=== PATIENT | female | born 1955 | race Caucasian/White ===

== ENCOUNTER 2022-03-21 13:42 | Emergency (ER) | payer OTHER ==
--- NOTE | 2022-03-21 14:25 | XRAY Report ---
PROCEDURE: Finger(s) RT INDICATIONS: Trauma TECHNIQUE: PA hand, 2 views of the thumb acquired. COMPARISON: None. FINDINGS: Bones: Small calcification is seen at the volar aspect of the fifth distal phalanx that may be a smal l fracture fragment versus a sesamoid. No suspicious bony lesions. Mild to moderate degenerative zuleika nges at the first carpometacarpal joint and triscaphe joint. 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 Soft tissues: Mild soft tissue edema is seen in the thumb. IMPRESSION: 1.Small calcification at the volar aspect of the first distal phalangeal base may represent a small f racture fragment versus a normal sesamoid. Recommend correlation for point tenderness. 2.Mild to moderate degenerative changes at the first carpometacarpal and triscaphe joints. 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 Reviewed by: Noah Mcnally MD on 03/21/2022 2:24 PM PDT Approved by: Noah Mcnally MD on 03/21/2022 2:24 PM PDT Station ID: [id number]
--- NOTE | 2022-03-21 15:24 | ED Physician Documentation ---
PD HPI UPPER EXT INJURY - Stated complaint Stated Complaint: RT THUMB INJ - Chief complaint Chief Complaint: Trauma Ext - History obtained from History obtained from: Patient - History of Present Illness Location: Right, Finger (thumb) Type of injury: Blunt / blow (she states struck on thumb as she was reaching/holding something, so direct impact at thumb and some hyperextension.) Where injury occurred: Work Timing - onset: How many weeks ago (2) Timing - duration: Weeks (2) Timing - details: Abrupt onset, Still present (continues to hurt with movement and persistent swelling.) Improved by: Rest Worsened by: Moving, Palpating Associated symptoms: Swelling. No: Weakness, Numbness Similar symptoms before: Has not had sx before Recently seen: Not recently seen Review of Systems Skin: denies: Abrasion (s), Laceration (s) Musculoskeletal: reports: Joint pain (thumg at MCP and IP.) Neurologic: denies: Focal weakness, Numbness PD PAST MEDICAL HISTORY - Past Medical History Musculoskeletal: None - Present Medications Home Medications: Ambulatory Orders Medication Instructions Recorded Confirmed HYDROcod/ACETAM 5/325 [[place] 5/325] 1 ea PO Q6H PRN #10 tablet 03/21/22 Meloxicam [Mobic] 7.5 mg PO BID 10 Days #20 tablet 03/21/22 - Allergies Allergies/Adverse Reactions: Allergies Allergy/AdvReac Type Severity Reaction Status Date / Time No Known Drug Allergies Allergy Verified 03/21/22 13:50 PD ED PE NORMAL - Vitals Vital signs reviewed: Yes - General General: Alert and oriented X 3, No acute distress, Well developed/nourished - Derm Derm: Normal color, Warm and dry - Extremities Extremities: Other (righ thumb with swelling and tender at MCP dorsal and IP volar areas. Able to flex and extend reluctantly but hurts and swelling. ) - Neuro Neuro: No motor deficit, No sensory deficit Results - Vitals Vitals: Vital Signs - 24 hr 03/21/22 03/21/22 13:47 16:36 Temperature 36.2 C L Heart Rate 74 59 L Respiratory 16 14 Rate Blood Pressure 156/58 H 149/70 H O2 Saturation 97 97 Oxygen O2 Source Room air - Rads (name of study) hand Radiology: Prelim report reviewed (small calcificiation volar IP joint, consider avulsion. ), See rad report PD MEDICAL DECISION MAKING - ED course Complexity details: reviewed results (consider small avulsion volar IP joint. ), considered differential (patient tender at MCP and at IP. ), d/w patient Departure - Departure Disposition: 01 Home, Self Care Clinical Impression: Sprain of right thumb Qualifiers: Encounter type: initial encounter Sprain of finger site: unspecified site Qualified Code(s): S63.601A - Unspecified sprain of right thumb, initial encounter Condition: Stable Record reviewed to determine appropriate education?: Yes Instructions: ED Sprain Finger Follow-Up: Orthopedic Care [Provider Group] Prescriptions: Meloxicam [Mobic] 7.5 mg PO BID 10 Days #20 tablet HYDROcod/ACETAM 5/325 [[place] 5/325] 1 ea PO Q6H PRN #10 tablet PRN Reason: Pain Comments: It seems likely to be some bruising and sprain of the thumb. However x-ray shows an area of a possible small avulsion/chip fracture at the joint. As far as the bone goes, is not really a large issue regarding fracture but more vendor representatives of the attachment point for some ligaments. We want to protect range of motion of the thumb and lessen it to allow better healing. Use the Velcro thumb splint much of the time at home and most of the time with working or activity over the next couple of weeks. Meloxicam anti-inflammatory twice daily with food. To that add Tylenol or hydrocodone if needed for pain. I sent your prescriptions to [facility] in [place]. I am prescribing a short course of narcotic pain medication for you. These are potentially dangerous and addictive medications that should be used carefully. These medications may constipate you. Take an xgje-tqw-axfoygv stool softener such as docusate twice daily with plenty of water while taking these medications. If you go 24 hours without a bowel movement, take hcbn-yca-vywzygr MiraLAX, per package instructions. Do not drink or drive while taking these medications. If you received narcotic or sedating medications while in the emergency department do not drive for 24 hours. Store this medication in a safe, secure place and out of reach of children. It is a violation of federal law to give or sell this medication to another person or to use in a manner other than prescribed. The ED will not refill narcotic prescriptions, including prescriptions lost or stolen. You can dispose of unwanted medications at the [facility]'s office or at several pharmacies such as [facility]. Follow-up with the orthopedic office to ensure this is healing well. Call for an appointment for about 1-1 1/2 weeks from now. Discharge Date/Time: 03/21/22 16:38
[2022-03-21] MEDS ORDERED: HYDROcod/ACETAM 5/325 MG TABLET PO STA (16:20)
[2022-03-21 16:37] VITALS: BP 149/70
== END 2022-03-21 16:38 | disposition home or self-care (01) ==
LOC: ED 13:42
DX: S63.601A Unspecified sprain of right thumb, initial encounter (principal); W22.8XXA Striking against or struck by other objects, initial encounter; Y99.0 Civilian activity done for income or pay
CPT/HCPCS: 73140; 99283; A9270

== ENCOUNTER 2022-04-21 14:36 | Outpatient (CLI) | payer OTHER ==
[2022-04-21] MEDS ORDERED: GADOBUTROL 7.5 MMOL/7.5 ML VIAL ONE (15:19)
[2022-04-21] MEDS ORDERED: GADOBUTROL 7.5 MMOL/7.5 ML VIAL IVP ONE (15:55)
--- NOTE | 2022-04-21 16:55 | MRI Report ---
PROCEDURE: Brain W/WO INDICATIONS: HEMIPLEGIA CONTRAST: IV CONTRAST: Gadavist ml: 5.1 TECHNIQUE: Noncontrast axial T1 spin echo, axial T2 fast spin echo, sagittal and axial FLAIR, coronal T2 fast sp in echo, axial gradient echo, axial diffusion and ADC through the brain. After the administration of contrast, axial and coronal T1 spin echo with fat saturation through the brain. COMPARISON: Correlation is made with prior head CT angiogram, 04/01/2022. FINDINGS: Image quality: Excellent. CSF spaces: Basal cisterns are patent. No extra-axial fluid collections. Ventricles are normal in size and shape. Brain: No midline shift. No intracranial bleeds or masses. No abnormal intracranial enhancement. There is cerebral volume loss for age. There is periventricular white matter chronic small vessel is chemic change. The brainstem appears normal. Diffusion-weighted images demonstrate no acute ischemi c insults. No chronic ischemic insults. Normal intravascular flow voids are present. Skull and face: Calvarial marrow is normal in signal. Orbits appear normal. Incidental note is ma de of bilateral lens replacements. Sinuses: Sinuses and mastoids appear clear. IMPRESSION: No findings of acute or subacute infarction are seen. No prior significant infarction can be seen. No masses or abnormal enhancement can be seen. Reviewed by: Salvatore Giles MD on 04/21/2022 3:54 PM [facility] Approved by: Salvatore Giles MD on 04/21/2022 3:54 PM [facility] Station ID: [id number]
== END 2022-04-21 14:37 | disposition home or self-care (01) ==
LOC: DI 14:36
PROVIDERS: ATTEND Physician Assistant
DX: I69.354 Hemiplegia and hemiparesis following cerebral infarction affecting left non-dominant side (principal)
CPT/HCPCS: 70553; A9585

== ENCOUNTER 2022-04-29 00:04 | Emergency (ER) | payer OTHER ==
[2022-04-29] MEDS ORDERED: KETOROLAC 30 MG/ML VIAL IM STA (00:41)
[2022-04-29] MEDS ORDERED: HYDROcod/ACETAM 5/325 MG TABLET PO STA (00:41)
[2022-04-29] MEDS ORDERED: predniSONE 20 MG TABLET PO STA (00:41)
--- NOTE | 2022-04-29 01:29 | ED Physician Documentation ---
History of Present Illness - Stated complaint Stated Complaint: R HIP/LEG PAIN - Chief complaint Chief Complaint: Ext Problem - History obtained from History obtained from: Patient - Additonal information Additional information: The patient comes to the emergency department with chief complaint of right buttock pain that goes all the way down her leg into her calf. She states that she has had this occasionally but that its been really bad over the last few days. The patient states that she does some standing at work but mostly sits. She has not had any injury recently. No back pain. The pain starts at the top of her buttock and goes down through the mid buttock into her leg. No numbness or tingling. No loss of bowel or bladder control. No difficulty with gait. No other complaints at this time. Review of Systems Ten Systems: 10 systems reviewed and negative Constitutional: reports: Reviewed and negative Eyes: reports: Reviewed and negative Ears: reports: Reviewed and negative Nose: reports: Reviewed and negative Throat: reports: Reviewed and negative Cardiac: reports: Reviewed and negative Respiratory: reports: Reviewed and negative GI: reports: Reviewed and negative : reports: Reviewed and negative Skin: reports: Reviewed and negative Musculoskeletal: reports: Extremity pain Neurologic: reports: Reviewed and negative Psychiatric: reports: Reviewed and negative Endocrine: reports: Reviewed and negative Immunocompromised: reports: Reviewed and negative PD PAST MEDICAL HISTORY - Past Medical History Cardiovascular: None Neuro: None Endocrine/Autoimmune: Type 2 diabetes Musculoskeletal: None - Past Surgical History Past Surgical History: No Ortho: Spine surgery - Present Medications Home Medications: Ambulatory Orders Medication Instructions Recorded Confirmed Insulin Glargine [Lantus Solostar] 10 units SQ HS 04/01/22 04/01/22 Atorvastatin [Lipitor] 40 mg PO QPM #30 tablet 04/02/22 Clopidogrel [Plavix] 75 mg PO DAILY #30 tablet 04/02/22 Cyclobenzaprine [Flexeril] 5 mg PO TID PRN #20 tablet 04/02/22 Insulin Lispro [Humalog Kwikpen 3 unit SUBQ TIDWM #3 each 04/02/22 U-100] Magnesium Oxide [Mag Ox] 400 mg PO DAILYWM #30 tablet 04/02/22 HYDROcod/ACETAM 5/325 [[place] 5/325] 1 - 2 tablet PO Q6H PRN #14 tablet 04/29/22 predniSONE [Deltasone] 60 mg PO DAILY 5 Days #15 tablet 04/29/22 - Allergies Allergies/Adverse Reactions: Allergies Allergy/AdvReac Type Severity Reaction Status Date / Time No Known Drug Allergies Allergy Verified 04/29/22 00:07 - Social History Does the pt smoke?: No Smoking Status: Never smoker PD ED PE NORMAL - Vitals Vital signs reviewed: Yes - General General: No acute distress, Well developed/nourished, Other (Alert, grossly oriented. 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, Normal 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 - Psych Psych: Normal mood, Normal affect Results - Vitals Vitals: Vital Signs - 24 hr 04/29/22 04/29/22 00:07 01:45 Temperature 36.5 C Heart Rate 87 67 Respiratory 16 18 Rate Blood Pressure 150/60 H 143/62 H O2 Saturation 99 100 Oxygen O2 Source Room air - Rads (name of study) Right hip pelvis X-ray Radiology: Final report received, EMP read indepedently, See rad report (No acute findings) PD MEDICAL DECISION MAKING - ED course Complexity details: reviewed results, re-evaluated patient, considered differential, d/w patient ED course: The patient was treated symptomatically in the emergency department. Her x-rays were unremarkable. I discussed home management of her symptoms with her, as well as the usual indications for return. Departure - Departure Disposition: 01 Home, Self Care Clinical Impression: Sciatica Qualifiers: Laterality: right Qualified Code(s): M54.31 - Sciatica, right side Condition: Stable Instructions: ED Sciatica Prescriptions: predniSONE [Deltasone] 60 mg PO DAILY 5 Days #15 tablet HYDROcod/ACETAM 5/325 [[place] 5/325] 1 - 2 tablet PO Q6H PRN #14 tablet PRN Reason: Pain Comments: Your hip and pelvis x-ray actually look quite good. You do not have any arthritis to speak of and most likely, the pain that you are having is caused by compression of your sciatic nerve bundle as it passes through your pelvis. This can account for the pain that goes down through your buttock and anterior leg. There are number of helpful stretches that you can google to help decompress the nerve. You may also use ibuprofen and Tylenol if needed. Prescriptions for stronger medications have been electronically transmitted to the [email or web address] pharmacy in [place], which is your pharmacy of choice on record. Please follow-up with your primary doctor to discuss further options for treatment if your symptoms are not better in the next 1 to 2 weeks.
[2022-04-29 01:46] VITALS: BP 143/62
--- NOTE | 2022-04-29 01:54 | XRAY Report ---
PROCEDURE: Hip w/Pelvis 1V RT INDICATIONS: pain TECHNIQUE: AP view of the pelvis acquired. COMPARISON: None. FINDINGS: Bones: No displaced fractures or dislocations. Pelvic ring appears intact. No suspicious bony lesi ons. Soft tissues: The visualized bowel gas pattern is normal. IMPRESSION: 1. No displaced fracture or dislocation. Reviewed by: Bunny Gomez MD on 04/29/2022 1:52 AM PDT Approved by: Bunny Gomez MD on 04/29/2022 1:52 AM PDT Station ID: [id number]
--- OUTSIDE RECORDS SUMMARY | 2022-04-29 05:45 | EXTERNAL MEDICAL SUMMARY RPT | Continuity of Care Document ---
:1955 Author Organization [facility] Address [address] [place] [address] Phone Allergies No information. Encounters No information. Functional Status No information. Immunizations No information. Medications date description facility +0000 insulin glargine All [id number]+0000 hydrocodone-acetaminophen All [id number]+0000 insulin glargine All [id number]+0000 meloxicam All [id number]+0000 meloxicam All [id number]+0000 hydrocodone-acetaminophen All Problems No information. Procedures date description facility [id number] Visit Code Hold All Results/Labs No information. Social History No information. Vital Signs date measurement value units [id number]+0000 BP_diastolic BP_diastolic 81 mm[H g] [id number]+0000 BP_systolic BP_systolic 121 mm[Hg] 87555014764316+0000 heart_rate heart_rate 91 /min [id number]+0000 respiration_rate respiration_rate 18 /min 69820060146486+0000 temperature_metric temperature_metric 36.78 C [id number]+0000 temperature_standard temperature_standard 9 8.2 F [id number]+0000 weight_metric weight_metric 44 kg [id number]+0000 weight_standard weight_standard 97 lb
== END 2022-04-29 01:45 | disposition home or self-care (01) ==
LOC: ED 00:04
DX: M54.31 Sciatica, right side (principal); E11.9 Type 2 diabetes mellitus without complications; Z79.4 Long term (current) use of insulin
CPT/HCPCS: 73501; 96372; 99283; 99284; A9270; J7512

== ENCOUNTER 2022-07-05 12:55 | Outpatient (CLI) | payer OTHER ==
[2022-07-05 18:31] LABS: BASOPHILS # (AUTO) 0.1 10^3/uL (0.0-0.1); BASOPHILS % (AUTO) 1.4 %; EOSINOPHILS # (AUTO) 0.5 10^3/uL (0.0-0.7); EOSINOPHILS % (AUTO) 6.6 %; HCT - HEMATOCRIT 37.3 % (37.0-47.0); LYMPHOCYTES # (AUTO) 2.7 10^3/uL (1.5-3.5); LYMPHOCYTES % (AUTO) 37.8 %; MEAN CORPUSCULAR HGB CONC 32.2 g/dL (32.0-36.0); MEAN CORPUSCULAR VOLUME 93.3 fL (81.0-99.0); MEAN PLATELET VOLUME 10.9 fL (7.9-10.8); MONOCYTES # (AUTO) 0.6 10^3/uL (0.0-1.0); NEUTROPHILS # (AUTO) 3.2 10^3/uL (1.5-6.6); NEUTROPHILS % (AUTO) 44.9 %; PLT - PLATELET COUNT 365 10^3/uL (130-450); WHITE BLOOD COUNT 7.1 x10^3/uL (4.8-10.8)
[2022-07-05 18:48] LABS: CREATININE,URINE 57.7 mg/dL; MICROALBUM/CREATININE RATIO,UR 466.2 ug/mg (<30.0); MICROALBUMIN,URINE 26.9 mg/dL (0-300.0)
[2022-07-05 18:59] LABS: THYROID STIMULATING HORMONE 2.07 uIU/mL (0.34-5.60)
[2022-07-05 19:03] LABS: ALBUMIN/GLOBULIN RATIO 1.1 (1.0-2.2); ALKALINE PHOSPHATASE 630 IU/L (42-121); ALT ALANINE AMINOTRANSFERASE 430 IU/L (10-60); AST ASPARTATE AMINOTRANSFERASE 283 IU/L (10-42); BILIRUBIN,TOTAL 0.6 mg/dL (0.2-1.0); BUN - BLOOD UREA NITROGEN 21 mg/dL (6-20); CALCIUM 9.9 mg/dL (8.5-10.3); CARBON DIOXIDE - CO2 27 mmol/L (21-32); CHLORIDE 106 mmol/L (101-111); CHOL/HDL RATIO 2.3 (<4.4); CHOLESTEROL 229 mg/dL; CREATININE 0.6 mg/dL (0.4-1.0); GFR - MDRD 100 (>89); GLUCOSE 156 mg/dL (70-100); HDL CHOLESTEROL 101 mg/dL; LDL CHOLESTEROL,CALCULATED 105 mg/dL; POTASSIUM 4.1 mmol/L (3.5-5.0); SODIUM 140 mmol/L (135-145); TOTAL PROTEIN 7.6 g/dL (6.7-8.2); TRIGLYCERIDES 116 mg/dL; VLDL CHOLESTEROL 23 mg/dL
[2022-07-05 20:09] LABS: ESTIMATED AVERAGE GLUCOSE 223 mg/dL (70-100); HEMOGLOBIN A1c% 9.4 % (4.27-6.07)
== END 2022-07-05 12:56 | disposition home or self-care (01) ==
LOC: LAB.N 12:55
PROVIDERS: ATTEND Family Medicine
DX: E78.00 Pure hypercholesterolemia, unspecified (principal); E10.9 Type 1 diabetes mellitus without complications; G45.9 Transient cerebral ischemic attack, unspecified; G81.94 Hemiplegia, unspecified affecting left nondominant side
CPT/HCPCS: 36415; 80053; 80061; 82043; 82570; 83036; 83721; 84443; 85025

== ENCOUNTER 2022-07-14 14:55 | Outpatient (CLI) | payer OTHER ==
[2022-07-14 15:11] LABS: BASOPHILS # (AUTO) 0.1 10^3/uL (0.0-0.1); BASOPHILS % (AUTO) 0.7 %; EOSINOPHILS # (AUTO) 0.3 10^3/uL (0.0-0.7); EOSINOPHILS % (AUTO) 2.8 %; HCT - HEMATOCRIT 36.1 % (37.0-47.0); HGB - HEMOGLOBIN 11.8 g/dL (12.0-16.0); LYMPHOCYTES # (AUTO) 2.9 10^3/uL (1.5-3.5); LYMPHOCYTES % (AUTO) 30.1 %; MEAN CORPUSCULAR HGB CONC 32.7 g/dL (32.0-36.0); MEAN CORPUSCULAR VOLUME 91.9 fL (81.0-99.0); MEAN PLATELET VOLUME 10.2 fL (7.9-10.8); MONOCYTES % (AUTO) 9.9 %; NEUTROPHILS # (AUTO) 5.4 10^3/uL (1.5-6.6); NEUTROPHILS % (AUTO) 56.2 %; PLT - PLATELET COUNT 326 10^3/uL (130-450); RED BLOOD COUNT 3.93 10^6/uL (4.20-5.40); RED CELL DISTRIBUTION WIDTH 12.5 % (12.0-15.0); WHITE BLOOD COUNT 9.6 x10^3/uL (4.8-10.8)
[2022-07-14 15:14] LABS: PT - PROTHROMBIN TIME 10.9 secs (9.9-12.6)
[2022-07-14 15:23] LABS: PARTIAL THROMBOPLASTIN TIME 27.9 secs (24.9-33.3)
[2022-07-14 15:30] LABS: % IRON SATURATION 13 % (20-50); ALBUMIN 4.1 g/dL (3.2-5.5); ALBUMIN/GLOBULIN RATIO 1.1 (1.0-2.2); ALKALINE PHOSPHATASE 571 IU/L (42-121); ALT ALANINE AMINOTRANSFERASE 190 IU/L (10-60); AST ASPARTATE AMINOTRANSFERASE 103 IU/L (10-42); BILIRUBIN,TOTAL 0.2 mg/dL (0.2-1.0); BUN - BLOOD UREA NITROGEN 28 mg/dL (6-20); CALCIUM 9.8 mg/dL (8.5-10.3); CARBON DIOXIDE - CO2 26 mmol/L (21-32); CHLORIDE 105 mmol/L (101-111); CHOL/HDL RATIO 2.8 (<4.4); CHOLESTEROL 205 mg/dL; CREATININE 0.6 mg/dL (0.4-1.0); GFR - MDRD 100 (>89); GLUCOSE 103 mg/dL (70-100); HDL CHOLESTEROL 72 mg/dL; IRON 52 ug/dL (28-170); LDL CHOLESTEROL,CALCULATED 112 mg/dL; LDL/HDL RATIO 1.6 (<4.4); POTASSIUM 3.9 mmol/L (3.5-5.0); SODIUM 141 mmol/L (135-145); TOTAL IRON BINDING CAPACITY 414 ug/dL (250-450); TOTAL PROTEIN 7.8 g/dL (6.7-8.2); TRANSFERRIN 296 mg/dL (192-382); TRIGLYCERIDES 107 mg/dL; VLDL CHOLESTEROL 21 mg/dL
[2022-07-15 04:08] LABS: HBsAG SCREEN Negative (Negative); HCV AB <0.1 s/co ratio (0.0-0.9); HEPATITIS B SURFACE AB QUANT <3.1 mIU/mL (Immunity>9.9)
== END 2022-07-14 14:56 | disposition home or self-care (01) ==
LOC: DI 14:55
PROVIDERS: ATTEND Family Medicine
DX: G45.9 Transient cerebral ischemic attack, unspecified (principal); I08.0 Rheumatic disorders of both mitral and aortic valves; I72.8 Aneurysm of other specified arteries; R74.8 Abnormal levels of other serum enzymes
CPT/HCPCS: 36415; 80053; 80061; 82728; 83540; 83721; 84466; 85025; 85610; 85730; 86317; 86704; 86803; 87340; 93306

== ENCOUNTER 2022-07-14 14:56 | Outpatient (CLI) | payer OTHER ==
--- NOTE | 2022-07-15 15:57 | Ultrasound Report ---
PROCEDURE: Abdomen Limited INDICATIONS: ELEVATED LIVER ENZYMES TECHNIQUE: Real-time focused scanning was performed of the abdomen, with image documentation. COMPARISON: None. FINDINGS: Liver: Liver is normal in size and homogeneous in echotexture. Portal vein and hepatic vein are pat ent. Gallbladder: The gallbladder is normal. No gallstones, gallbladder wall thickening, pericholecystic f luid collection or no sonographic Cade sign. Biliary ducts: Intrahepatic bile ducts are non-dilated. Extrahepatic bile duct caliber measures 5.6 mm. Normal is 6-7 mm or less in diameter. Pancreas: Visualized portions of the pancreas are sonographically normal. Right kidney: Right kidney is normal in size and echotexture. Right kidney measures 9.2 cm long. No hydronephrosis or nephrolithiasis. No solid masses. Aorta: Visualized aorta is normal in caliber at less than 3 cm. IVC: Intrahepatic inferior vena cava is patent. Miscellaneous: No free abdominal fluid. IMPRESSION: 1. Normal limited abdominal ultrasound exam. Reviewed by: Conchis Kim MD on 07/15/2022 3:55 PM PST Approved by: Conchis Kim MD on 07/15/2022 3:55 PM PST Station ID: [id number]
== END 2022-07-14 14:57 | disposition home or self-care (01) ==
LOC: DI 14:56
PROVIDERS: ATTEND Physician Assistant
DX: R74.8 Abnormal levels of other serum enzymes (principal); G45.9 Transient cerebral ischemic attack, unspecified; I08.0 Rheumatic disorders of both mitral and aortic valves; I72.8 Aneurysm of other specified arteries
CPT/HCPCS: 36415; 80053; 80061; 82728; 83540; 83721; 84466; 85025; 85610; 85730; 86317; 86704; 86803; 87340; 93306

== ENCOUNTER 2022-09-13 09:57 | Outpatient (CLI) | payer MEDICARE, OTHER ==
--- NOTE | 2022-09-13 13:22 | XRAY Report ---
PROCEDURE: Lumbar Spine 2 View INDICATIONS: SCIATICA TECHNIQUE: 2 views of the lumbar spine were acquired. COMPARISON: None. FINDINGS: Bones: 5 lumbar-type vertebral bodies. Trace retrolisthesis of L5 on S1. Overall moderate spondylotic changes. Rightward lumbar spinal curvature. Multilevel disc space height loss, facet arthropathy, an d osteophyte formation. Vertebral body heights are well-maintained otherwise. Soft tissues: Moderate to high fecal burden. Vascular calcifications. IMPRESSION: Moderate spondylosis. If there is high concern for further derangement, consider MRI evaluation. Reviewed by: Shane Flaherty MD on 09/13/2022 1:20 PM [facility] Approved by: Shane Flaherty MD on 09/13/2022 1:20 PM PST Station ID: [id number]
== END 2022-09-13 09:58 | disposition home or self-care (01) ==
LOC: DI 09:57
PROVIDERS: ATTEND Physician Assistant
DX: M54.31 Sciatica, right side (principal); M47.816 Spondylosis without myelopathy or radiculopathy, lumbar region

== ENCOUNTER 2022-10-06 10:33 | Outpatient (CLI) | payer MEDICARE, OTHER ==
[2022-10-06 11:13] LABS: BASOPHILS # (AUTO) 0.1 10^3/uL (0.0-0.1); BASOPHILS % (AUTO) 0.7 %; EOSINOPHILS # (AUTO) 0.3 10^3/uL (0.0-0.7); EOSINOPHILS % (AUTO) 3.8 %; HCT - HEMATOCRIT 35.8 % (37.0-47.0); HGB - HEMOGLOBIN 11.8 g/dL (12.0-16.0); LYMPHOCYTES # (AUTO) 3.1 10^3/uL (1.5-3.5); LYMPHOCYTES % (AUTO) 37.5 %; MEAN CORPUSCULAR HEMOGLOBIN 29.7 pg (27.0-31.0); MEAN CORPUSCULAR VOLUME 90.2 fL (81.0-99.0); MEAN PLATELET VOLUME 10.9 fL (7.9-10.8); MONOCYTES # (AUTO) 0.6 10^3/uL (0.0-1.0); MONOCYTES % (AUTO) 6.7 %; NEUTROPHILS # (AUTO) 4.2 10^3/uL (1.5-6.6); NEUTROPHILS % (AUTO) 51.2 %; PLT - PLATELET COUNT 256 10^3/uL (130-450); RED BLOOD COUNT 3.97 10^6/uL (4.20-5.40); RED CELL DISTRIBUTION WIDTH 11.7 % (12.0-15.0); WHITE BLOOD COUNT 8.2 x10^3/uL (4.8-10.8)
[2022-10-06 11:23] LABS: ALBUMIN/GLOBULIN RATIO 1.2 (1.0-2.2); ALKALINE PHOSPHATASE 197 IU/L (42-121); ALT ALANINE AMINOTRANSFERASE 18 IU/L (10-60); AST ASPARTATE AMINOTRANSFERASE 24 IU/L (10-42); BILIRUBIN,TOTAL 0.4 mg/dL (0.2-1.0); BUN - BLOOD UREA NITROGEN 32 mg/dL (6-20); CALCIUM 9.6 mg/dL (8.5-10.3); CARBON DIOXIDE - CO2 24 mmol/L (21-32); CHLORIDE 102 mmol/L (101-111); CHOL/HDL RATIO 2.8 (<4.4); CHOLESTEROL 163 mg/dL; CREATININE 0.9 mg/dL (0.4-1.0); GFR - MDRD 63 (>89); GLUCOSE 240 mg/dL (70-100); HDL CHOLESTEROL 59 mg/dL; LDL CHOLESTEROL,CALCULATED 77 mg/dL; LDL/HDL RATIO 1.3 (<4.4); POTASSIUM 4.7 mmol/L (3.5-5.0); SODIUM 139 mmol/L (135-145); TOTAL PROTEIN 7.4 g/dL (6.7-8.2); TRIGLYCERIDES 134 mg/dL; VLDL CHOLESTEROL 27 mg/dL
[2022-10-06 13:11] LABS: ESTIMATED AVERAGE GLUCOSE 240 mg/dL (70-100)
== END 2022-10-06 10:34 | disposition home or self-care (01) ==
LOC: LAB 10:33
PROVIDERS: ATTEND Physician Assistant
DX: E11.9 Type 2 diabetes mellitus without complications (principal); Z79.4 Long term (current) use of insulin; R74.8 Abnormal levels of other serum enzymes
CPT/HCPCS: 36415; 80053; 80061; 83036; 83721; 85025

== ENCOUNTER 2022-11-09 13:52 | Outpatient (CLI) | payer OTHER, MEDICARE ==
--- NOTE | 2022-11-09 18:12 | MRI Report ---
PROCEDURE: LUMBAR SPINE WO INDICATIONS: RIGHT SCIATICA TECHNIQUE: Noncontrast sagittal T1 spin echo and T2 fast echo, sagittal STIR, axial T1 and T2 fast spin echo thr ough the lumbar spine. In cases with scoliosis, additional coronal T2 fast spin echo may be performe d. COMPARISON: None. FINDINGS: Image quality: Excellent. Alignment and Curvature: There is normal bony alignment. Bone Marrow: Marrow is of normal overall signal. No acute vertebral body compression fractures. Spinal Cord: Conus medullaris terminates at the L1-L2 level. Visualized cord demonstrates normal si gnal and size. Paraspinous Soft Tissues: No paravertebral masses. T12-L1: Short pedicles. Disc bulge. Mild facet hypertrophy. No significant canal stenosis. Mild bila teral foraminal stenosis. L1-L2: Disc bulge. Short pedicles. Facet hypertrophy. No significant canal stenosis. No significan t foraminal stenosis. L2-L3: Disc bulge. Short pedicles. Facet hypertrophy. Mild canal stenosis. No significant foramina l stenosis. L3-L4: Short pedicles. Large diffuse disc bulge. Prominent facet hypertrophy. Severe canal stenosis . Mild bilateral foraminal stenosis. L4-L5: Short pedicles. Disc bulge. Facet and ligament hypertrophy. Severe canal stenosis. No signif icant foraminal stenosis. L5-S1: Short pedicles. Right paracentral inferior disc extrusion, which, in conjunction with facet hypertrophy, contributes to marked right lateral recess stenosis and severe central canal stenosis. IMPRESSION: 1. Patient has underlying short pedicles and multilevel facet arthropathy. 2. Canal stenosis is mild at L2-L3, severe at L3-L4, severe at L4-L5, and severe at L5-S1. 3. A right paracentral inferior disc extrusion contributes to marked right lateral recess stenosis an d severe central canal stenosis at L5-S1. Reviewed by: Sudheer Levy MD on 11/09/2022 6:10 PM PDT Approved by: Sudheer Levy MD on 11/09/2022 6:10 PM PDT Station ID: [id number]
== END 2022-11-09 13:53 | disposition home or self-care (01) ==
LOC: DI 13:52
PROVIDERS: ATTEND Physician Assistant
DX: M51.27 Other intervertebral disc displacement, lumbosacral region (principal); M51.36 Other intervertebral disc degeneration, lumbar region; M48.061 Spinal stenosis, lumbar region without neurogenic claudication; M48.07 Spinal stenosis, lumbosacral region; M47.817 Spondylosis without myelopathy or radiculopathy, lumbosacral region

== ENCOUNTER 2022-11-23 17:25 | Emergency (ER) | payer MEDICARE, OTHER ==
--- NOTE | 2022-11-23 17:55 | ED Physician Documentation ---
PD HPI CHEST PAIN - Stated complaint Stated Complaint: CHEST PX,ARM-LEG NUMB - Chief complaint Chief Complaint: Cardiac - History obtained from History obtained from: Patient - Additional information Additional information: This is a 67-year-old female with a past medical history of a TIA who presented with left chest pain radiating down into the left arm which occurred at about 1630. The chest pain was a sharp "pinprick" sensation that was brief but she then subsequently had left arm weakness. 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 She subsequently also felt some left leg decreased sensation and states that it "felt funny." She has some sensation there now but different than the right. She denies any facial droop, no difficulty speaking, no headache or confusion. She no longer has any chest pain, denies any shortness of breath. Chart review indicates that patient had similar symptoms in March 2022 with left-sided weakness. CTs at that time are reassuring, patient was admitted for TIA and a follow-up MRI the next day was negative. She is on Plavix which she is compliant with. Review of Systems Constitutional: reports: Reviewed and negative Eyes: reports: Reviewed and negative Ears: reports: Reviewed and negative Nose: reports: Reviewed and negative Throat: reports: Reviewed and negative Cardiac: reports: Chest pain / pressure. denies: Palpitations, Pedal edema, Calf pain Respiratory: denies: Dyspnea, Cough, Hemoptysis, Wheezing GI: reports: Reviewed and negative : reports: Reviewed and negative Skin: reports: Reviewed and negative Musculoskeletal: reports: Reviewed and negative Neurologic: reports: Focal weakness, Numbness. denies: Generalized weakness, Difficulty speaking, Near syncope, Syncope, Seizure, Confused, Altered mental status, Headache, Head injury, LOC Psychiatric: reports: Reviewed and negative Endocrine: reports: Reviewed and negative Immunocompromised: reports: Reviewed and negative PD PAST MEDICAL HISTORY - Past Medical History Past Medical History: Yes Cardiovascular: None Neuro: None Endocrine/Autoimmune: Type 2 diabetes Musculoskeletal: None - Past Surgical History Past Surgical History: No Ortho: Spine surgery - Present Medications Home Medications: Ambulatory Orders Medication Instructions Recorded Confirmed Insulin Glargine [Lantus Solostar] 10 units SQ HS 04/01/22 04/01/22 Atorvastatin [Lipitor] 40 mg PO QPM #30 tablet 04/02/22 Clopidogrel [Plavix] 75 mg PO DAILY #30 tablet 04/02/22 Cyclobenzaprine [Flexeril] 5 mg PO TID PRN #20 tablet 04/02/22 Insulin Lispro [Humalog Kwikpen 3 unit SUBQ TIDWM #3 each 04/02/22 U-100] Magnesium Oxide [Mag Ox] 400 mg PO DAILYWM #30 tablet 04/02/22 HYDROcod/ACETAM 5/325 [[place] 5/325] 1 - 2 tablet PO Q6H PRN #14 tablet 04/29/22 predniSONE [Deltasone] 60 mg PO DAILY 5 Days #15 tablet 04/29/22 - Allergies Allergies/Adverse Reactions: Allergies Allergy/AdvReac Type Severity Reaction Status Date / Time No Known Drug Allergies Allergy Verified 11/23/22 17:31 - Social History Does the pt smoke?: No Smoking Status: Never smoker PD ED PE NORMAL - Vitals Vital signs reviewed: Yes - General General: Alert and oriented X 3, No acute distress, Well developed/nourished - HEENT HEENT: Atraumatic, PERRL, EOMI, Moist mucous membranes, Pharynx benign - Neck Neck: Supple, no meningeal sign, No JVD, No bruit - Cardiac Cardiac: RRR, No murmur - Respiratory Respiratory: No respiratory distress, Clear bilaterally - Abdomen Abdomen: Normal bowel sounds, Soft, Non tender, Non distended - Derm Derm: Normal color, Warm and dry, No rash - Extremities Extremities: No deformity, No tenderness to palpate, Other (Left arm and left leg are weak, 3 out of 5. With decreased pain sensation) - Neuro Neuro: Alert and oriented X 3, Normal speech, Other (Left-sided motor and sensory deficit, NIH score of 7 (left arm 3, left leg 2, limb ataxia, sensation)). No: No motor deficit, No sensory deficit Eye Opening: Spontaneous Motor: Obeys Commands Verbal: Oriented GCS Score: 15 Results - Vitals Vitals: Vital Signs - 24 hr 11/23/22 11/23/22 11/23/22 17:31 18:01 18:49 Temperature 36.7 C Heart Rate 87 71 76 Respiratory 18 16 16 Rate Blood Pressure 185/75 H 157/72 H 156/75 H O2 Saturation 100 99 100 Oxygen O2 Source Room air - EKG (time done) No standard instances EKG releavant findings:: EKG personally interpreted by author of this note. Relevant findings are: Rate: Rate (enter#) (71) Rhythm: NSR [place]: Normal Intervals: Normal [place] QRS: Normal Ischemia: Normal ST segments Computer interpretation: Agree with computer - Labs Labs: Laboratory Tests 11/23/22 11/23/22 11/23/22 17:48 17:48 17:48 WBC 12.0 H RBC 4.24 Hgb 12.7 Hct 36.5 L MCV 86.1 MCH 30.0 MCHC 34.8 RDW 11.5 L Plt Count 337 MPV 10.8 Neut # (Auto) 6.1 Lymph # (Auto) 4.9 H [place] # (Auto) 0.7 Eos # (Auto) 0.2 Baso # (Auto) 0.1 Absolute Nucleated RBC 0.00 Nucleated RBC % 0.0 PT INR Sodium 139 Potassium 3.2 L Chloride 101 Carbon Dioxide 26 Anion Gap 12.0 BUN 24 H Creatinine 0.9 Estimated GFR (MDRD) 63 L Glucose 159 H Calcium 9.8 Total Bilirubin 0.3 AST 25 ALT 24 Alkaline Phosphatase 196 H Troponin I High Sens 2.7 Total Protein 7.5 Albumin 4.0 Globulin 3.5 Albumin/Globulin Ratio 1.1 Lipase 35 11/23/22 17:48 WBC RBC Hgb Hct MCV MCH MCHC RDW Plt Count MPV Neut # (Auto) Lymph # (Auto) [place] # (Auto) Eos # (Auto) Baso # (Auto) Absolute Nucleated RBC Nucleated RBC % PT 10.3 INR 0.9 Sodium Potassium Chloride Carbon Dioxide Anion Gap BUN Creatinine Estimated GFR (MDRD) Glucose Calcium Total Bilirubin AST ALT Alkaline Phosphatase Troponin I High Sens Total Protein Albumin Globulin Albumin/Globulin Ratio Lipase PD Medical Decision Making - ED course Complexity details: reviewed old records, reviewed results, re-evaluated patient, considered differential, d/w patient, d/w family, d/w search consultant ED course: This is a 67-year-old female who presented with left chest pain, and left sided arm and leg weakness which started about 4:30 PM this afternoon. On arrival here, the patient has a NIH score of 7 with left arm, and left leg weakness as well as limb ataxia and decreased sensation of the left arm and the left leg. She is otherwise stable appearing, in no acute distress. We obtained labs which are reassuring, her EKG shows no ischemic Changes, and chest x-ray is negative. We obtained a stroke protocol CT head and CT angio head and neck which show no acute findings. I notified the telestroke provider who has evaluated the patient and has recommended tPA. The patient has no significant contraindications to tPA and she has verbally consented as has her daughter. We will pursue transfer to higher level of care for ongoing stroke protocol and follow-up on administration of tPA. - TPA CVA checklist Inclusion crititeria: positive: Sig neuro deficit, CT no bleed, Onset know < 4.5 hr Absolute contraindications: negative: SBP>185 DBP>110 s/p tx, CT shows bleed, CT shows major est CVA, Platelets <100K, PTT > 40, INR >1.7, Known bleeding disorder, Surgery/trauma < 15 days, Seizure at onset, Internal bleed < 22 days, Brain/spine surg < 3 m, Head trauma < 3 m, CVA < 3 months, Any hx ICH, Any hx brain aneurysm, Any hx brain AVM, Any hx brain tumor, Suspect SAH Relative contraindications: negative: Too severe (NIHSS>22), Too mild, Rapid improvement, Glusose <50 >400, Life expectancy < 1 yr, Severe comorbid illness, Bacterial endocarditis, Severe hepatic dz, Severe renal dz, Hemorrhagic eye condition, Septic thrombophlebitis, Infected AV shunt, On coumadin, , Advanced age, Left heart thrombus Absolute contraindications if 3-4.5 hr: negative: Coumadin (any INR), Age > 80, Combo prior CVA & DM Departure - Departure Disposition: 02 Transfer Acute Care Hosp Clinical Impression: Stroke-like symptoms Condition: Good
[2022-11-23 17:57] LABS: BASOPHILS # (AUTO) 0.1 10^3/uL (0.0-0.1); BASOPHILS % (AUTO) 0.7 %; EOSINOPHILS # (AUTO) 0.2 10^3/uL (0.0-0.7); EOSINOPHILS % (AUTO) 1.9 %; HCT - HEMATOCRIT 36.5 % (37.0-47.0); HGB - HEMOGLOBIN 12.7 g/dL (12.0-16.0); LYMPHOCYTES # (AUTO) 4.9 10^3/uL (1.5-3.5); LYMPHOCYTES % (AUTO) 41.1 %; MEAN CORPUSCULAR HGB CONC 34.8 g/dL (32.0-36.0); MEAN CORPUSCULAR VOLUME 86.1 fL (81.0-99.0); MEAN PLATELET VOLUME 10.8 fL (7.9-10.8); MONOCYTES # (AUTO) 0.7 10^3/uL (0.0-1.0); MONOCYTES % (AUTO) 5.5 %; NEUTROPHILS # (AUTO) 6.1 10^3/uL (1.5-6.6); NEUTROPHILS % (AUTO) 50.6 %; PLT - PLATELET COUNT 337 10^3/uL (130-450); RED BLOOD COUNT 4.24 10^6/uL (4.20-5.40); RED CELL DISTRIBUTION WIDTH 11.5 % (12.0-15.0)
[2022-11-23 18:07] LABS: ALBUMIN/GLOBULIN RATIO 1.1 (1.0-2.2); BILIRUBIN,TOTAL 0.3 mg/dL (0.2-1.0); CALCIUM 9.8 mg/dL (8.5-10.3); CREATININE 0.9 mg/dL (0.4-1.0); POTASSIUM 3.2 mmol/L (3.5-5.0); TOTAL PROTEIN 7.5 g/dL (6.7-8.2)
--- NOTE | 2022-11-23 18:11 | XRAY Report ---
PROCEDURE: Chest 1 View X-Ray INDICATIONS: Chest Pain TECHNIQUE: One view of the chest was acquired. COMPARISON: None. FINDINGS: Surgical changes and devices: None. Lungs and pleura: No pleural effusions or pneumothorax. Lungs are clear. Mediastinum: Mediastinal contours appear normal. Heart size is normal. Bones and chest wall: No suspicious bony lesions. Overlying soft tissues appear unremarkable. IMPRESSION: No acute pulmonary process. Reviewed by: Gloria Mckee MD on 11/23/2022 6:10 PM PDT Approved by: Gloria Mckee MD on 11/23/2022 6:10 PM PDT Station ID: [id number]
[2022-11-23] MEDS ORDERED: iohexoL-300 100 ML VIAL ONE (18:22)
[2022-11-23 18:30] LABS: INR 0.9 (0.8-1.2); PT - PROTHROMBIN TIME 10.3 secs (9.9-12.6)
--- NOTE | 2022-11-23 19:01 | CT Report ---
PROCEDURE: ANGIO HEAD W/WO INDICATIONS: L sided facial droop CONTRAST: 80mL Omni 300 TECHNIQUE: Precontrast 4.5 mm thick angled axial sections acquired from the foramen magnum to the vertex. Afte r the administration of intravenous contrast, 1 mm thick sections acquired through the [place] of [place] is. Postcontrast 4.5 mm thick sections then re-acquired from the foramen magnum to the vertex. 3-di mensional vlnzzqj-kkvilvjta-oshawxpaxn (MIP) and/or volume rendering reformats were acquired of the c entral intracranial vasculature. For radiation dose reduction, the following was used: automated ex posure control, adjustment of mA and/or kV according to patient size. COMPARISON: CT head, CTA neck 11/23/2022, CTA head and neck 04/01/2022, MRI brain 04/21/2022 FINDINGS: Image quality: Excellent. Anterior circulation: Intracranial internal carotid arteries are normal in size and flow. The flow within the paired anterior cerebral arteries is normal and symmetric. The flow within the middle cer ebral arteries is normal and symmetric. The anterior communicating artery is seen. No aneurysms are seen. Posterior circulation: Visualized portions of the vertebral arteries demonstrate normal caliber, and join to form a normal appearing basilar artery. There is a mild hypoplastic right P1 segment of the posterior cerebral artery arising from origin overall unchanged in appearance compared to 2021. No aneurysms are seen. CSF spaces: Ventricles are normal in size and shape. Basal cisterns are patent. No extra-axial flu id collections. Brain: No midline shift. No intracranial bleeds or masses. Arias-white matter interface appears int act. Skull and face: Calvarium and facial bones appear intact, without suspicious lesions. Sinuses: Visualized sinuses and mastoids are clear. IMPRESSION: 1. No acute intracranial process. 2. No areas of hemodynamically significant stenosis, vascular occlusion or aneurysmal dilation within the anterior circulation. 3. No areas of hemodynamically significant stenosis, vascular occlusion or aneurysmal dilation within the posterior circulation. Reviewed by: Gloria Mckee MD on 11/23/2022 6:59 PM PDT Approved by: Gloria Mckee MD on 11/23/2022 6:59 PM PDT Station ID: [id number]
--- NOTE | 2022-11-23 19:03 | CT Report ---
PROCEDURE: ANGIO NECK W INDICATIONS: left sided weakness CONTRAST: 80mL Omni 300 TECHNIQUE: After the administration of intravenous contrast, 1.5 mm axial sections acquired from the aortic arch to the [place] of [place]. Coronal 3-D maximum intensity projection (MIP) and/or volume rendering ref ormats were then performed. For radiation dose reduction, the following was used: automated exposur e control, adjustment of mA and/or kV according to patient size. COMPARISON: CTA head, CT neck 11/23/2022, CTA head and neck 04/01/2022, MRI brain 04/21/2022. FINDINGS: Image quality: Excellent. 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 The origins of the commo n carotid arteries appear patent. The common carotid arteries demonstrate normal calibers and course s. The bifurcation regions appear normal bilaterally. The internal carotid arteries demonstrate nor mal caliber and course. Posterior circulation: The origins of the vertebral arteries appear patent. The more superior porti ons of the vertebral arteries demonstrate normal course and caliber. They join to form a normal appe aring basilar artery. There is mild hypoplasia of the right P1 segment of the posterior cerebral art tommie from origin, unchanged compared to prior exam. Soft tissues: Visualized neck soft tissues demonstrate no suspicious abnormalities. The thyroid is normal in size and there are no incidental findings. Bones: No suspicious bony lesions. Visualized cervical spine appears normally aligned. IMPRESSION: There are no areas of hemodynamically significant stenosis, vascular occlusion or aneurysmal dilation within the neck vasculature. The estimate of stenosis included in the report of the imaging study was calculated using the NASCET method CLINICAL RECOMMENDATION STATEMENTS: In patients <35 years with an ITN detected on CT, MRI, or extrathyroidal ultrasound, the Committee re commends further evaluation with dedicated thyroid ultrasound if the nodule is "e1 cm and has no susp icious imaging features, and if the patient has normal life expectancy. In patients "e35 years with an ITN detected on CT, MRI, or extrathyroidal ultrasound, the Committee r ecommends further evaluation with dedicated thyroid ultrasound if the nodule is "e1.5 cm and has no s uspicious imaging features, and if the patient has normal life expectancy. (ACR, 2014) Reviewed by: Gloria Mckee MD on 11/23/2022 7:02 PM PDT Approved by: Gloria Mckee MD on 11/23/2022 7:02 PM PDT Station ID: [id number]
--- NOTE | 2022-11-23 19:10 | CT Report ---
PROCEDURE: Head W/O Stroke Protocol INDICATIONS: left sided weakness TECHNIQUE: Noncontrast 4.5 mm thick angled axial sections acquired from the foramen magnum to the vertex, with c oronal reformats. For radiation dose reduction, the following was used: automated exposure control, adjustment of mA and/or kV according to patient size. COMPARISON: MRI brain 04/21/2022, CTA head and neck 04/01/2022 FINDINGS: Image quality: Excellent. CSF spaces: Basal cisterns are patent. No extra-axial fluid collections. Ventricles are normal in size and shape. Brain: No midline shift. No intracranial masses or hemorrhage. Arias-white matter interface is norm al. Skull and face: Calvarium and visualized facial bones are intact, without suspicious lesions. Sinuses: Visualized sinuses and mastoids are clear. IMPRESSION: 1. No acute intracranial process. The above findings were discussed with Emergency Room physician on 11/23/2022 at 7:01 PM. This study fulfills neurological imaging criteria for inclusion or exclusion of acute stroke therapie s based on available published neurological imaging guidelines. Reviewed by: Gloria Mckee MD on 11/23/2022 7:09 PM PDT Approved by: Gloria Mckee MD on 11/23/2022 7:09 PM PDT Station ID: [id number]
[2022-11-23] MEDS ORDERED: TENECTEPLASE 50 MG/10 ML VIAL IVP STA (19:11)
[2022-11-23] MEDS ORDERED: iohexoL-300 100 ML VIAL IVP ONE (20:50)
[2022-11-23] MEDS ORDERED: POTASSIUM CHLORIDE 20 MEQ/15 ML UDC PO ONE (21:00)
[2022-11-23] MEDS ORDERED: ACETAMINOPHEN 325 MG TABLET PO STA (21:17)
[2022-11-23 23:34] VITALS: BP 137/61
== END 2022-11-23 23:37 | disposition short-term general hospital (02) ==
LOC: ED 17:25
DX: R20.0 Anesthesia of skin (principal); R07.89 Other chest pain; E11.9 Type 2 diabetes mellitus without complications; Z79.4 Long term (current) use of insulin; Z79.899 Other long term (current) drug therapy; Z79.02 Long term (current) use of antithrombotics/antiplatelets; Z20.822 Contact with and (suspected) exposure to COVID-19
CPT/HCPCS: 36415; 37195; 70450; 70496; 70498; 71045; 80053; 83690; 84484; 85025; 85610; 87635; 93005; 99285; A9270; J3101; Q9967

== ENCOUNTER 2023-07-24 10:16 | Outpatient (CLI) | payer MEDICARE, OTHER ==
[2023-07-24 10:39] LABS: BASOPHILS # (AUTO) 0.1 10^3/uL (0.0-0.1); BASOPHILS % (AUTO) 0.7 %; EOSINOPHILS # (AUTO) 0.3 10^3/uL (0.0-0.7); EOSINOPHILS % (AUTO) 2.5 %; HCT - HEMATOCRIT 35.5 % (37.0-47.0); HGB - HEMOGLOBIN 11.5 g/dL (12.0-16.0); LYMPHOCYTES # (AUTO) 3.2 10^3/uL (1.5-3.5); MEAN CORPUSCULAR HEMOGLOBIN 30.2 pg (27.0-31.0); MEAN CORPUSCULAR HGB CONC 32.4 g/dL (32.0-36.0); MEAN CORPUSCULAR VOLUME 93.2 fL (81.0-99.0); MEAN PLATELET VOLUME 10.3 fL (7.9-10.8); MONOCYTES # (AUTO) 0.8 10^3/uL (0.0-1.0); MONOCYTES % (AUTO) 6.9 %; NEUTROPHILS # (AUTO) 6.7 10^3/uL (1.5-6.6); NEUTROPHILS % (AUTO) 60.5 %; PLT - PLATELET COUNT 268 10^3/uL (130-450); RED BLOOD COUNT 3.81 10^6/uL (4.20-5.40); RED CELL DISTRIBUTION WIDTH 12.4 % (12.0-15.0); WHITE BLOOD COUNT 11.1 x10^3/uL (4.8-10.8)
[2023-07-24 10:53] LABS: ALBUMIN 4.2 g/dL (3.2-5.5); ALBUMIN/GLOBULIN RATIO 1.4 (1.0-2.2); ALKALINE PHOSPHATASE 225 IU/L (42-121); ALT ALANINE AMINOTRANSFERASE 16 IU/L (10-60); AST ASPARTATE AMINOTRANSFERASE 19 IU/L (10-42); BILIRUBIN,TOTAL 0.3 mg/dL (0.2-1.0); BUN - BLOOD UREA NITROGEN 30 mg/dL (6-20); CALCIUM 9.7 mg/dL (8.5-10.3); CARBON DIOXIDE - CO2 29 mmol/L (21-32); CHLORIDE 107 mmol/L (101-111); CHOL/HDL RATIO 2.3 (<4.4); CHOLESTEROL 139 mg/dL; CREATININE 0.8 mg/dL (0.6-1.3); GFR - MDRD 72 (>89); GLUCOSE 68 mg/dL (74-104); HDL CHOLESTEROL 60 mg/dL; LDL CHOLESTEROL,CALCULATED 66 mg/dL; LDL/HDL RATIO 1.1 (<4.4); POTASSIUM 3.4 mmol/L (3.5-4.5); SODIUM 142 mmol/L (135-145); TOTAL PROTEIN 7.2 g/dL (6.4-8.9); TRIGLYCERIDES 67 mg/dL (48-352); VLDL CHOLESTEROL 13 mg/dL
[2023-07-24 11:31] LABS: CREATININE,URINE 67.3 mg/dL; MICROALBUM/CREATININE RATIO,UR 248.1 ug/mg (<30.0); MICROALBUMIN,URINE 16.7 mg/dL
[2023-07-24 11:52] LABS: ESTIMATED AVERAGE GLUCOSE 220 mg/dL (70-100); HEMOGLOBIN A1c% 9.3 % (4.27-6.07)
[2023-07-24 12:49] LABS: THYROID STIMULATING HORMONE 0.96 uIU/mL (0.34-5.60)
== END 2023-07-24 10:17 | disposition home or self-care (01) ==
LOC: LAB 10:16
PROVIDERS: ATTEND Physician Assistant
DX: E11.3292 Type 2 diabetes mellitus with mild nonproliferative diabetic retinopathy without macular edema, left eye (principal); I10 Essential (primary) hypertension
CPT/HCPCS: 36415; 80053; 80061; 82043; 82570; 83036; 83721; 84443; 85025

== ENCOUNTER 2023-09-01 09:26 | Outpatient (CLI) | payer MEDICARE, OTHER ==
[2023-09-01 09:55] LABS: ALBUMIN 4.2 g/dL (3.2-5.5); ALBUMIN/GLOBULIN RATIO 1.4 (1.0-2.2); BILIRUBIN,TOTAL 0.3 mg/dL (0.2-1.0); CALCIUM 9.6 mg/dL (8.5-10.3); CREATININE 0.8 mg/dL (0.6-1.3); POTASSIUM 3.7 mmol/L (3.5-4.5); TOTAL PROTEIN 7.2 g/dL (6.4-8.9)
== END 2023-09-01 09:27 | disposition home or self-care (01) ==
LOC: LAB 09:26
PROVIDERS: ATTEND Physician Assistant
DX: R74.8 Abnormal levels of other serum enzymes (principal)
CPT/HCPCS: 36415; 80053; 82977

== ENCOUNTER 2023-11-18 11:38 | Outpatient (CLI) | payer MEDICARE, MEDICAID ==
[2023-11-18 12:03] LABS: CREATININE 0.8 mg/dL (0.6-1.3)
[2023-11-18] MEDS: GADOTERATE MEGLUMINE 7.5 MMOL/15 ML VIAL IVP ONE (13:23)
--- NOTE | 2023-11-29 14:11 | MRI Report ---
PROCEDURE: Lumbar Spine W/WO INDICATIONS: ABN PET SCAN CONTRAST: CLARISCAN 10.2 ML TECHNIQUE: Noncontrast sagittal T1 spin echo and T2 fast spin echo, sagittal STIR, axial T1 and T2 fast spin ech o through the lumbar spine. In cases with scoliosis, additional coronal T2 fast spin echo may be per formed. After the administration of contrast, sagittal and axial T1 spin echo with fat saturation th rough the lumbar spine. COMPARISON: 11/09/2022 Correlation is made with the accompanying imaging. Correlation is made with pr ior recent outside nuclear medicine bone scan, 11/07/2023 FINDINGS: Image quality: Excellent. Alignment and curvature: There is minimal retrolisthesis seen at L5-S1. Marrow: Marrow is of normal overall signal. No acute vertebral body compression fractures. No susp icious marrow enhancement. Spinal cord: Conus medullaris terminates at the L1 level. Visualized spinal cord demonstrates teo l signal, without suspicious enhancement. Paraspinous soft tissues: No paravertebral masses or abnormal enhancement. T12-L1: Mild loss of disc height and disc signal are seen. Reactive marrow endplate changes are see n, which are on hypointense on T1-weighted and hyperintense T2-weighted imaging, with associated in creased STIR signal. These imaging findings are most consistent with endplate edema ([place] type 1 zuleika nge). A mild degree of endplate enhancement seen, which is attributed to degenerative enhancement. Mo derate disc bulge is seen at this level. Mild facet hypertrophy is seen. Moderate bilateral neura l foraminal narrowing is seen. Mild central canal narrowing is seen. These imaging findings are similar to the images of the prior examination. L1-L2: The disc height is well-preserved. There is loss of disc signal seen. Mild disc bulge is s een. Mild facet hypertrophy is seen. No significant neural foraminal or central canal narrowing ca n be seen. These imaging findings are stable compared to the prior examination. L2-L3: The disc height is well-preserved. There is loss of disc signal seen. Mild disc bulge is seen. Note is made of an annular fissure posteriorly. Mild facet hypertrophy is seen. There is mild to moderate left-sided and no right-sided neuroforaminal narrowing. No significant central canal elma rowing is seen. These imaging findings are similar to the images of the prior examination. L3-L4: Mild loss of disc height and disc signal are seen. Reactive marrow endplate changes are s een, which are on hypointense on T1-weighted and hyperintense T2-weighted imaging, with associated increased STIR signal. These imaging findings are most consistent with endplate edema ([place]ic type 1 c hange). At this level (particularly along the posterior aspect of the L3 vertebral body) there is en hancement seen, which is attributed to degenerative enhancement. Moderate disc bulge is seen at this level. A superimposed central disc protrusion is seen. Mild to moderate facet hypertrophy is seen. Moderate bilateral neural foraminal narrowing is seen. At least moderate central canal narrowing is seen, as on series 8 image 27. No significant change compared to the prior examination. L4-L5: The disc height is well-preserved. There is loss of disc signal seen. Moderate disc bulge is seen, which is eccentric to the left. A superimposed central disc protrusion is seen. Moderate fac et hypertrophy is seen. There is moderate right-sided and no left-sided neuroforaminal narrowing. Moderate central canal narrowing is seen. No significant change compared to the prior examination. L5-S1: Moderate loss of disc height and signal are seen. Reactive marrow endplate changes are se en, which are on hypointense on T1-weighted and hyperintense T2-weighted imaging, with associated i ncreased STIR signal. These imaging findings are most consistent with endplate edema (Modic type 1 ch chitra). There is enhancement seen of the endplates, which is attributed to degenerative enhancement. At least moderate disc bulge is seen, which is eccentric to the left. There is moderate right-sided a nd moderate to prominent left-sided facet hypertrophy. Associated hypertrophy of the ligamentum flavu m can be seen. Moderate to severe bilateral neural foraminal narrowing can be seen, with associated compression upon the exiting nerve roots. Moderate central canal narrowing is seen. These imaging findings are similar to the images of the prior examination. IMPRESSION: No ayse findings of metastatic disease can be seen. Multiple levels of degenerative change can be seen. Endplate edema with associated presumed reactive enhancement can be seen at T12-L1, L3-L4, and L5-S1. Multiple levels of degenerative change can be seen, which are similar to the prior study one year pre viously. Reviewed by: Salvatore Giles MD on 11/29/2023 1:09 PM AKDT Approved by: Salvatore Giles MD on 11/29/2023 1:09 PM LAUREL Station ID: [id number]
--- NOTE | 2023-11-29 14:33 | MRI Report ---
PROCEDURE: Thoracic Spine W/WO INDICATIONS: ABN PET SCAN CONTRAST: CLARISCAN 10.2 ML TECHNIQUE: Noncontrast sagittal T1 spin echo and T2 fast spin echo, sagittal STIR, axial T1 and T2 fast spin ech o through the thoracic spine. After the administration of contrast, axial and sagittal T1 spin echo with fat saturation through the thoracic spine. COMPARISON: Correlation is made with the accompanying imaging. Correlation is also made with outside nuclear medicine bone scan dated 11/07/2023. FINDINGS: Image quality: Excellent. Alignment and curvature: There is accentuated thoracic kyphosis. Minimal anterolisthesis can be see n at T11-T12. Marrow: Marrow is of normal overall signal. No acute vertebral body compression fractures. Spinal cord: Visualized spinal cord is of normal signal and size, without abnormal enhancement. Paraspinous soft tissues: No paravertebral masses or abnormal enhancement. Miscellaneous: There is moderate disc space narrowing seen. T5-T6 and T6-T7. Reactive marrow endplat e changes are seen at these levels, which are on hypointense on T1-weighted and hyperintense T2-shira ghted imaging, with associated increased STIR signal. These imaging findings are most consistent with endplate edema ([place] type 1 change). There is mild endplate enhancement also seen at these levels, which is attributed to degenerative enhancement. Similar-appearing reactive change and endplate enha ncement can be seen at the T12-L1 level. At T5-T6 and T6-T7, there is moderate disc space narrowing, with associated minimal central canal elma rowing. Mild to moderate bilateral neuroforaminal narrowing can be seen at these levels. Minimal anterolisthesis can be seen at T11-T12. Milder degenerative changes are seen elsewhere. IMPRESSION: No findings of metastatic disease can be seen. Focal degenerative change can be seen at T5-T6 and T6-T7, with associated endplate edema with reactiv e enhancement. Reviewed by: Salvatore Giles MD on 11/29/2023 1:32 PM LA[facility]L Approved by: Salvatore Giles MD on 11/29/2023 1:32 PM [place]URE[place] Station ID: [id number]
== END 2023-11-18 11:39 | disposition home or self-care (01) ==
LOC: LAB 11:38
PROVIDERS: ATTEND Physician Assistant
DX: M51.26 Other intervertebral disc displacement, lumbar region (principal); M47.816 Spondylosis without myelopathy or radiculopathy, lumbar region; M48.061 Spinal stenosis, lumbar region without neurogenic claudication; M51.17 Intervertebral disc disorders with radiculopathy, lumbosacral region; M47.27 Other spondylosis with radiculopathy, lumbosacral region; M48.07 Spinal stenosis, lumbosacral region; M48.04 Spinal stenosis, thoracic region; M43.14 Spondylolisthesis, thoracic region
CPT/HCPCS: 36415; 82565

== ENCOUNTER 2023-11-18 12:12 | Outpatient (CLI) | payer MEDICARE, MEDICAID ==
[~2023-11-18 12:12] MED LIST: GADOTERATE MEGLUMINE 7.5 MMOL/15 ML VIAL ONE
== END 2023-11-18 23:59 | disposition home or self-care (01) ==
LOC: DI 12:12
PROVIDERS: ATTEND Physician Assistant
DX: Z53.9 Procedure and treatment not carried out, unspecified reason (principal)

== ENCOUNTER 2023-12-04 09:43 | Outpatient (CLI) | payer MEDICARE, MEDICAID ==
[2023-12-04 10:20] LABS: ALBUMIN 4.2 g/dL (3.2-5.5); ALBUMIN/GLOBULIN RATIO 1.3 (1.0-2.2); BILIRUBIN,TOTAL 0.4 mg/dL (0.2-1.0); CALCIUM 10.1 mg/dL (8.5-10.3); CREATININE 0.8 mg/dL (0.6-1.3); POTASSIUM 3.9 mmol/L (3.5-4.5); TOTAL PROTEIN 7.5 g/dL (6.4-8.9)
[2023-12-04 10:26] LABS: ESTIMATED AVERAGE GLUCOSE 203 mg/dL (70-100); HEMOGLOBIN A1c% 8.7 % (4.27-6.07)
== END 2023-12-04 09:44 | disposition home or self-care (01) ==
LOC: LAB 09:43
PROVIDERS: ATTEND Physician Assistant
DX: R74.8 Abnormal levels of other serum enzymes (principal); E11.3292 Type 2 diabetes mellitus with mild nonproliferative diabetic retinopathy without macular edema, left eye
CPT/HCPCS: 36415; 80053; 82306; 82977; 83036; 83970

== ENCOUNTER 2024-02-02 06:12 | Day surgery (SDC) | payer MEDICARE, MEDICAID ==
[~2024-02-02 06:12] MED LIST changes: -GADOTERATE MEGLUMINE 7.5 MMOL/15 ML VIAL ONE; +LIDOCAINE-MPF 2% 5 ML VIAL ONE; +PROPOFOL 200 MG/20 ML VIAL IVP ONE
[2024-02-02 06:48] VITALS: BP 144/56; O2SAT 99
[2024-02-02] MEDS: LACTATED RINGERS 1,000 ML IV ONE (06:56)
--- NOTE | 2024-02-02 07:04 | ANESTHESIA ---
Pre-Anesthesia VS, & Labs - Diagnosis Screening - Procedure Colonoscopy Vital Signs: Temp Pulse Resp BP Pulse Ox O2 Flow Rate 36.6 C 68 16 144/56 H 99 02/02/24 06:43 02/02/24 06:43 02/02/24 06:43 02/02/24 06:43 02/02/24 06:43 Height: 4 ft 9 in Weight (kg): 50.2 kg Body Mass Index: 23.9 BMI Classification: Normal - Is Patient ?: No, Not Applicable - Lab Results Current Lab Results: Laboratory Tests 02/02/24 06:51: POC Whole Bld Glucose 163 H Home Medications and Allergies Home Medications: Ambulatory Orders Atorvastatin [Lipitor] 80 mg PO QPM 02/01/24 Empagliflozin [Jardiance] 25 mg PO DAILY 02/01/24 Insulin Glargine [Lantus Solostar] 30 units SQ HS 04/01/22 Gabapentin [Neurontin] 300 mg PO BID PRN 11/23/22 lisinopriL [Zestril] 5 mg PO DAILY 11/23/22 Atorvastatin [Lipitor] 80 mg PO QPM 02/01/24 Empagliflozin [Jardiance] 25 mg PO DAILY 02/01/24 Allergies/Adverse Reactions: Allergies Allergy/AdvReac Type Severity Reaction Status Date / Time No Known Drug Allergies Allergy Verified 09/16/23 15:31 Anes History & Medical History - Anesthetic History Anesthesia Complications: reports: No previous complications Family history of Anesthesia Complications: Denies Family history of Malignant Hyperthermia: Denies - Medical History Cardiovascular: reports: None, Hypertension, High cholesterol Pulmonary: reports: None Gastrointestinal: reports: None Urinary: reports: None Neuro: reports: None Musculoskeletal: reports: None, Other Endocrine/Autoimmune: reports: Type 2 diabetes Blood Disorders: reports: None Skin: reports: None Smoking Status: Never smoker - Surgical History Eyes Ears Nose Throat (EENT): reports: Cataracts, Tonsil/Adenoidectomy Orthopedic: reports: Spine surgery Other Past Surgical History: SPine Cervical Surgery 3 years ago Exam General: Alert, Oriented x3 Dental: WNL Mouth Openin Fingerbreadth Neck Mobility: Normal Mallampati classification: II Thyromental Distance: 4-6 cm Respiratory: Lungs clear Cardiovascular: Regular rate Abdomen: Normal bowel sounds Extremities: No clubbing Mental/Cognitive Status: Alert/Oriented X3 Cognitive Status: Within normal limits Plan Anesthesia Type: MAC Consent for Procedure(s) Verified and Reviewed: Yes Code Status: Attempt Resuscitation ASA classification: 2-Mild systemic disease Is this case an emergency?: No
[2024-02-02] MEDS ORDERED: PROPOFOL 500 MG/50 ML 0 MG/0 ML VIAL ONE (07:26)
== END 2024-02-02 06:13 | disposition home or self-care (01) ==
LOC: SDS 06:12
PROVIDERS: ATTEND Surgery
DX: Z12.11 Encounter for screening for malignant neoplasm of colon (principal); Z53.9 Procedure and treatment not carried out, unspecified reason

== ENCOUNTER 2024-03-21 06:08 | Day surgery (SDC) | payer MEDICARE, MEDICAID ==
[2024-03-21] MEDS: LACTATED RINGERS 1,000 ML IV ONE (06:11)
--- NOTE | 2024-03-21 06:59 | ANESTHESIA ---
Pre-Anesthesia VS, & Labs - Diagnosis screening exam - Procedure colonoscopy Vital Signs: Temp Pulse Resp BP Pulse Ox O2 Flow Rate 36 C L 84 16 153/74 H 99 03/21/24 06:17 03/21/24 06:17 03/21/24 06:17 03/21/24 06:17 03/21/24 06:17 Height: 4 ft 9 in Weight (kg): 49.9 kg Body Mass Index: 23.8 BMI Classification: Normal - NPO >8 hours - Is Patient ?: No - Lab Results Current Lab Results: Laboratory Tests 03/21/24 06:32: POC Whole Bld Glucose 149 H Lab results reviewed: Yes Home Medications and Allergies Insulin Glargine [Lantus Solostar] 30 units SQ HS 04/01/22 Gabapentin [Neurontin] 300 mg PO BID PRN 11/23/22 lisinopriL [Zestril] 5 mg PO DAILY 11/23/22 Atorvastatin [Lipitor] 80 mg PO QPM 02/01/24 Empagliflozin [Jardiance] 25 mg PO DAILY 02/01/24 Allergies/Adverse Reactions: Allergies Allergy/AdvReac Type Severity Reaction Status Date / Time No Known Drug Allergies Allergy Verified 03/20/24 11:45 Anes History & Medical History - Anesthetic History Anesthesia Complications: reports: No previous complications - Medical History Cardiovascular: reports: Hypertension, High cholesterol Pulmonary: reports: None Gastrointestinal: reports: None Urinary: reports: None Neuro: reports: None Musculoskeletal: reports: Other Endocrine/Autoimmune: reports: Type 2 diabetes Blood Disorders: reports: None Skin: reports: None Smoking Status: Never smoker Psychosocial: reports: No issues indicated - Surgical History Eyes Ears Nose Throat (EENT): reports: Cataracts, Tonsil/Adenoidectomy Neurologic: reports: Other Orthopedic: reports: Spine surgery Exam General: Alert, Oriented x3, Cooperative, No acute distress Dental: WNL Mouth Openin Fingerbreadth Neck Mobility: Normal Mallampati classification: III Thyromental Distance: 4-6 cm Mental/Cognitive Status: Alert/Oriented X3, Normal for patient Plan Anesthesia Type: General, Total IV Consent for Procedure(s) Verified and Reviewed: Yes Code Status: Attempt Resuscitation ASA classification: 2-Mild systemic disease Is this case an emergency?: No
--- NOTE | 2024-03-21 07:27 | HISTORY & PHYSICAL EXAMINATION ---
Chief Complaint - Chief Complaint Chief Complaint: here for colonoscopy History of Present Illness - History Obtained From Records Reviewed: yes History obtained from: pt Exam Limitations: none - History of Present Illness HPI Comment/Other: first time colonoscopy. no gi symptoms History - Past Medical History Cardiovascular: reports: Hypertension, High cholesterol Respiratory: reports: None Neuro: reports: None Endocrine/Autoimmune: reports: Type 2 diabetes GI: reports: None : reports: None HEENT: reports: None Psych: reports: None Musculoskeletal: reports: Other Derm: reports: None MRSA Hx?: No - Past Surgical History Ortho: reports: Spine surgery Neuro: reports: Other HEENT: reports: Cataracts, Tonsil/Adenoidectomy - Family & Social History Family History Comment/Other: She states her mother had a history of diabetes. Her father had an unknown cancer. Her sister had throat cancer and she was a smoker. Living Situation: With family Social History Notes: She lives with her daughter and who is suffering from dementia. She is a non-smoker and does not drink alcohol. She moved from [place] about 7 months ago. 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 - POLST Patient has POLST: No Meds/Allgy - Home Medications Home Medications: Ambulatory Orders Medication Instructions Recorded Confirmed Insulin Glargine [Lantus Solostar] 30 units SQ HS 04/01/22 03/20/24 Gabapentin [Neurontin] 300 mg PO BID PRN 11/23/22 03/20/24 lisinopriL [Zestril] 5 mg PO DAILY 11/23/22 03/20/24 Atorvastatin [Lipitor] 80 mg PO QPM 02/01/24 03/20/24 Empagliflozin [Jardiance] 25 mg PO DAILY 02/01/24 03/20/24 - Allergies Allergies/Adverse Reactions: Allergies Allergy/AdvReac Type Severity Reaction Status Date / Time No Known Drug Allergies Allergy Verified 03/20/24 11:45 Review of Systems - Other Findings Other Findings: 10 pt ros as above otherwise unremarkable Exam - Vital Signs Vital Signs: Vital Signs x48h Temp Pulse Resp BP Pulse Ox 03/21/24 06:17 36 C L 84 16 153/74 H 99 - Physical Exam General Appearance: positive: No acute distress, Alert Eyes Bilateral: positive: PERRL, EOMI ENT: positive: No signs of dehydration Neck: positive: No JVD Respiratory: positive: No respiratory distress Cardiovascular: positive: Regular rate & rhythm Abdomen: positive: No distention Neurologic/Psychiatric: positive: Oriented x3 Conclusion/Plan - Problem List (1) Colon cancer screening Conclusion/Plan: plan colonoscopy. parq held and consent obtained - Lab Results Lab results reviewed: Yes
[2024-03-21] MEDS ORDERED: PROPOFOL 500 MG/50 ML 500 MG/50 ML VIAL ONE (07:38)
[2024-03-21] MEDS: LACTATED RINGERS 800 ML IV ONE ×2 (08:03→08:35)
[2024-03-21 08:14] VITALS: O2SAT 98
[2024-03-21 08:29] VITALS: BP 148/66
--- NOTE | 2024-03-21 10:05 | ANESTHESIA POST OP EVALUATION ---
Anesthesia Post Eval - Post Anesthesia Eval Vitals: Last Vital Signs Temp 36.1 C L 03/21/24 08:20 Pulse 70 03/21/24 08:20 Resp 16 03/21/24 08:20 BP 148/66 H 03/21/24 08:20 Pulse Ox 98 03/21/24 08:20 O2 Flow Rate CV Function Including HR & BP: Stable Pain Control: Satisfactory Nausea & Vomiting: Negative Mental Status: Baseline Respiratory Status: Airway Patent Hydration Status: Satisfactory Anesthesia Complications: None
== END 2024-03-21 06:09 | disposition home or self-care (01) ==
LOC: SDS 06:08
PROVIDERS: ATTEND Surgery
DX: Z12.11 Encounter for screening for malignant neoplasm of colon (principal); K57.30 Diverticulosis of large intestine without perforation or abscess without bleeding; E11.9 Type 2 diabetes mellitus without complications; Z79.4 Long term (current) use of insulin; Z79.84 Long term (current) use of oral hypoglycemic drugs
CPT/HCPCS: G0121; J7120